=== PATIENT | male | born 1990 | race Caucasian/White ===

== ENCOUNTER 2018-04-13 20:37 | Emergency (ER) | payer OTHER ==
[2018-04-13] MEDS: ONDANSETRON 4 MG INJ IV (20:58)
[2018-04-13] MEDS: HYDROmorphONE 1 MG/ML SYG IV (20:58)
[2018-04-13] MEDS: PROPOFOL 200 MG INJ IV (21:12)
[2018-04-13] MEDS: SOD CHLORIDE 0.9% 1,000 ML IV (21:12)
== END 2018-04-13 21:45 | disposition home or self-care (01) ==
LOC: E/R 20:37
DX: S43.015A Anterior dislocation of left humerus, initial encounter (principal); F17.210 Nicotine dependence, cigarettes, uncomplicated; X50.0XXA Overexertion from strenuous movement or load, initial encounter; Y92.9 Unspecified place or not applicable
CPT/HCPCS: 23650; 73030; 96374; 96375; 99291-25